=== PATIENT | female | born 1995 | race African-American/Black ===

== ENCOUNTER 2017-12-18 11:46 | Emergency (ER) | payer OTHER ==
[2017-12-18 11:53] VITALS: BP 108/73; BMI 21.1
[2017-12-18] MEDS ORDERED: IBUPROFEN 400 MG TABLET (FP) PO ONE (12:05)
--- NOTE | 2017-12-18 12:29 | PDOC ---
History of Present Illness - General Chief Complaint: Cold Symptoms Stated Complaint: NOT FEELING WELL Time Seen by Provider: 12/18/17 12:04 History Source: Patient - History of Present Illness Timing/Duration: other Associated Symptoms: reports: cough, fever/chills, headaches, weakness. denies : chest pain, nausea/vomiting Past History - Past Medical History Allergies/Adverse Reactions: Allergies Allergy/AdvReac Type Severity Reaction Status Date / Time Penicillins Allergy Verified 12/18/17 11:53 Home Medications: Ambulatory Orders NK [No Known Home Medication] 12/02/14 COPD: No DVT: No - Suicide/Smoking/Psychosocial Hx Smoking History: Never smoked Hx Alcohol Use: No Drug/Substance Use Hx: No Review of Systems - Review of Systems Constitutional: Yes: Fever HEENTM: Yes: Nose Congestion. No: Ear Pain, Throat Pain Respiratory: Yes: Cough. No: Shortness of Breath, Wheezing Cardiac (ROS): No: Chest Pain *Physical Exam - Vital Signs Last Vital Signs Temp Pulse Resp BP Pulse Ox 100.0 F H 102 H 20 108/73 98 12/18/17 11:50 12/18/17 11:50 12/18/17 11:50 12/18/17 11:50 12/18/17 11:50 - Physical Exam General Appearance: Yes: Appropriately Dressed. No: Apparent Distress HEENT: positive: Normal ENT Inspection, Normal Voice. negative: Scleral Icterus (R), Scleral Icterus (L) Neck: positive: Supple. negative: Lymphadenopathy (R), Lymphadenopathy (L) Respiratory/Chest: positive: Lungs Clear, Normal Breath Sounds. negative: Respiratory Distress Cardiovascular: positive: Regular Rate, S1, S2 Integumentary: positive: Dry, Warm Neurologic: positive: Fully Oriented, Alert, Normal Mood/Affect Medical Decision Making - Medical Decision Making 12/18/17 12:27 22-year-old female, no significant history here with generalized body aches with malaise, congestion, sneezing, cough and fever for 3 days. Taking NyQuil at home. Denies ear pain, sore throat, shortness of breath, chest pain, nausea , vomiting, diarrhea or rash. 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 Did get flu vaccine last month per patient. Patient with low-grade fever and mild tachycardia in ED with exam otherwise unremarkable. Suspect most likely viral source at this time, will rule out influenza. Anticipate discharge with supportive treatment 12/18/17 12:29 12/18/17 13:04 Flu A. No indication for tamiflu. Rpt vitals improved. No evidence of at this time, i.e., pneumonia. Will discharge with supportive treatment with strict return precautions given how deadly this year's flu strain has been 12/18/17 13:05 12/18/17 13:28 *DC/Admit/Observation/Transfer Diagnosis at time of Disposition: Influenza A - Discharge Dispostion Disposition: HOME Condition at time of disposition: Stable - Referrals Referrals: Michell Carter MD [Primary Care Provider] - - Patient Instructions Printed Discharge Instructions: Influenza Additional Instructions: You have the flu which is contagious. You will need to rest, drink plenty of fluids and take Motrin or Tylenol as needed for pain and/or fever. If symptoms worsen, especially if you develop shortness of breath, chest pain or increasing fever, return to ER immediately - Post Discharge Activity Forms/Work/School Notes: Back to Work
[2017-12-18 13:08] VITALS: PULSE 88; TEMP 100.2
== END 2017-12-18 13:13 | disposition home or self-care (01) ==
LOC: JERFT 11:46
DX: J09.X2 Influenza due to identified novel influenza A virus with other respiratory manifestations (principal)
CPT/HCPCS: 87804; 99281-25

== ENCOUNTER 2019-11-20 09:53 | Emergency (ER) | payer OTHER ==
[2019-11-20 09:58] VITALS: BMI 20.3
[2019-11-20 11:03] LABS: EPI CELLS 5.2 /HPF (0-5/HPF); HYALINE CASTS 9 /lpf (0-8); URINE APPEARANCE CLEAR; URINE BILIRUBIN NEGATIVE (NEGATIVE); URINE COLOR YELLOW; URINE GLUCOSE (UA) NEGATIVE (NEGATIVE); URINE KETONE NEGATIVE (NEGATIVE); URINE LEUK ESTERASE TRACE (NEGATIVE); URINE NITRITE NEGATIVE (NEGATIVE); URINE PROTEIN NEGATIVE (NEGATIVE); URINE RBC 2 /hpf (0-4); URINE WBC 9 /hpf (0-5)
[2019-11-20] MEDS ORDERED: ACETAMINOPHEN 650 MG/20.3 ML ORAL SOLUTION (CUPS) PO ONE (12:04)
[2019-11-20] MEDS ORDERED: SODIUM CHLORIDE 1,000 ML IV STA (12:13)
[2019-11-20] MEDS ORDERED: ACETAMINOPHEN 1000 MG/100 ML VIAL (NON FORMULARY) IVPB ONE (12:13)
[2019-11-20] MEDS ORDERED: ACETAMINOPHEN INJECTION 100 ML IVPB ONE (12:21)
[2019-11-20 12:43] LABS: BASO % 0.5 % (0-2.0); EOS % 2.7 % (0-4.5); HEMATOCRIT 33.1 % (32.4-45.2); LYMPH % 15.4 % (8-40); MCH 27.1 pg (25.7-33.7); MCHC 33.1 g/dl (32.0-36.0); MEAN CELL VOLUME 81.8 fl (80-96); MEAN PLT VOLUME 8.4 fl (7.5-11.1); MONO % 4.7 % (3.8-10.2); NEUT % 76.7 % (42.8-82.8); PLATELET COUNT 235 K/MM3 (134-434); RBC 4.05 M/mm3 (3.60-5.2); RDW 13.5 % (11.6-15.6); WHITE BLOOD COUNT 9.7 K/mm3 (4.0-10.0)
[2019-11-20 13:00] LABS: INR 0.97 (0.83-1.09); PROTHROMBIN TIME (PATIENT) 11.5 SEC (9.7-13.0)
[2019-11-20 13:20] LABS: ALBUMIN 3.2 g/dl (3.4-5.0); BILIRUBIN,TOTAL 0.1 mg/dL (0.2-1); BLOOD UREA NITROGEN 6.9 mg/dL (7-18); CALCIUM 8.6 mg/dL (8.5-10.1); CREATININE 0.5 mg/dL (0.55-1.3); POTASSIUM 4.2 mmol/L (3.5-5.1); TOT PROT 7.2 g/dl (6.4-8.2)
[2019-11-20 14:06] VITALS: TEMP 98.7
--- NOTE | 2019-11-20 14:34 | PDOC ---
History of Present Illness - General Chief Complaint: Pain, Acute Stated Complaint: ABD PAIN Time Seen by Provider: 11/20/19 10:05 History Source: Patient Exam Limitations: No Limitations Past History - Travel Traveled outside of the country in the last 30 days: No Close contact w/someone who was outside of country & ill: No - Past Medical History Allergies/Adverse Reactions: Allergies Allergy/AdvReac Type Severity Reaction Status Date / Time Penicillins Allergy Verified 11/20/19 09:55 Home Medications: Ambulatory Orders Acetaminophen [Tylenol -] 1,000 mg PO Q6H #30 tablet 11/20/19 2/Iron/Folic Acid/Om3 [Complete Faby Dha] 1 each PO DAILY 11/20/19 COPD: No DVT: No - Reproductive History Is Patient Now?: Yes (16 weeks ) (#): 2 Para: 1 Spontaneous : 0 - Psycho Social/Smoking Cessation Hx Smoking History: Never smoked Hx Alcohol Use: No Drug/Substance Use Hx: No Review of Systems - Review of Systems Able to Perform ROS?: Yes Comments:: 11/20/19 15:35 CONSTITUTIONAL: Absent: fever, chills, diaphoresis, generalized weakness, malaise, loss of appetite HEENT: Absent: rhinorrhea, nasal congestion, throat pain, throat swelling, difficulty swallowing, mouth swelling, ear pain, eye pain, visual Changes CARDIOVASCULAR: Absent: chest pain, loss of consciousness, palpitations, irregular heart rate, peripheral edema RESPIRATORY: Absent: cough, shortness of breath, dyspnea with exertion, orthopnea, wheezing, stridor, hemoptysis GASTROINTESTINAL: Present: Right lower quadrant pain, groin pain Absent: abdominal distension, nausea, vomiting, diarrhea, constipation, melena, hematochezia GENITOURINARY: Absent: dysuria, frequency, urgency, hesitancy, hematuria, flank pain, genital pain MUSCULOSKELETAL: Absent: myalgia, arthralgia, joint swelling SKIN: Absent: rash, itching, pallor NEUROLOGIC: Absent: headache, focal weakness or paresthesias, dizziness, unsteady gait, seizure, mental status changes, bladder or bowel incontinence PSYCHIATRIC: Absent: anxiety, depression, suicidal or homicidal ideation, hallucinations. Is the patient limited Faroese proficient: No *Physical Exam - Vital Signs Last Vital Signs Temp Pulse Resp BP Pulse Ox 98.7 F 78 18 101/50 L 100 11/20/19 14:06 11/20/19 14:06 11/20/19 14:06 11/20/19 14:06 11/20/19 14:06 - Physical Exam 11/20/19 15:36 GENERAL: Well developed, well nourished. Awake and alert. No acute distress. HEENT: Normocephalic, atraumatic. PERRLA, EOMI. No conjunctival pallor. Sclera are non- icteric. Moist mucous membranes. Oropharynx is clear. NECK: Supple. Full ROM. No JVD. Carotid pulses 2+ and symmetric, without bruits. No thyromegaly. No lymphadenopathy. CARDIOVASCULAR: Regular rate and rhythm. No murmurs, rubs, or gallops. Distal pulses are 2+ and symmetric. PULMONARY: No evidence of respiratory distress. Lungs clear to auscultation bilaterally. No wheezing, rales or rhonchi. ABDOMINAL: Tenderness to palpation of the right lower quadrant, right groin. Soft. Non- distended. No rebound or guarding. No organomegaly. Normoactive bowel sounds. MUSCULOSKELETAL Normal range of motion at all joints. No bony deformities or tenderness. No CVA tenderness. EXTREMITIES: No cyanosis. No clubbing. No edema. No calf tenderness. SKIN: Warm and dry. Normal capillary refill. No rashes. No jaundice. NEUROLOGICAL: Alert, awake, appropriate. Cranial nerves 2-12 intact. No deficits to light touch and temperature in face, upper extremities and lower extremities. No motor deficits in the in face, upper extremities and lower extremities. Normoreflexic in the upper and lower extremities. Normal speech. Toes are down- going bilaterally. Gait is normal without ataxia. PSYCHIATRIC: Cooperative. Good eye contact. Appropriate mood and affect. ED Treatment Course - LABORATORY CBC & Chemistry Diagram: 11/20/19 12:30 11/20/19 12:30 - ADDITIONAL ORDERS Additional order review: Laboratory Results 11/20/19 11/20/19 11/20/19 12:30 12:30 12:30 PT with INR 11.50 INR 0.97 Sodium 138 Potassium 4.2 Chloride 107 Carbon Dioxide 25 Anion Gap 6 L BUN 6.9 L Creatinine 0.5 L Est GFR (CKD-EPI)AfAm 155.90 Est GFR (CKD-EPI)NonAf 134.52 Random Glucose 82 Calcium 8.6 Total Bilirubin 0.1 L AST 23 ALT 15 Alkaline Phosphatase 84 Total Protein 7.2 Albumin 3.2 L Urine Color Urine Appearance Urine pH Ur Specific [place] Urine Protein Urine Glucose (UA) Urine Ketones Urine Blood Urine Nitrite Urine Bilirubin Urine Urobilinogen Ur Leukocyte Esterase Urine WBC (Auto) Urine RBC (Auto) Urine Casts (Auto) U Epithel Cells (Auto) Urine Bacteria (Auto) Blood Type B POSITIVE Antibody Screen Negative 11/20/19 10:40 PT with INR INR Sodium Potassium Chloride Carbon Dioxide Anion Gap BUN Creatinine Est GFR (CKD-EPI)AfAm Est GFR (CKD-EPI)NonAf Random Glucose Calcium Total Bilirubin AST ALT Alkaline Phosphatase Total Protein Albumin Urine Color Yellow Urine Appearance Clear Urine pH 7.0 Ur Specific [place] 1.026 Urine Protein Negative Urine Glucose (UA) Negative Urine Ketones Negative Urine Blood Negative Urine Nitrite Negative Urine Bilirubin Negative Urine Urobilinogen 1.0 Ur Leukocyte Esterase Trace Urine WBC (Auto) 9 Urine RBC (Auto) 2 Urine Casts (Auto) 9 U Epithel Cells (Auto) 5.2 Urine Bacteria (Auto) 907.0 Blood Type Antibody Screen 11/20/19 12:30 RBC 4.05 MCV 81.8 MCHC 33.1 RDW 13.5 MPV 8.4 Neutrophils % 76.7 Lymphocytes % 15.4 Monocytes % 4.7 Eosinophils % 2.7 Basophils % 0.5 - RADIOLOGY Radiology Studies Ordered: Category Date Time Status ABDOMEN MRI W/O CONTRAST /MRCP [MRI] Stat MRI 11/20/19 12:17 Ordered PELVIS(OTHER) US [US] Stat Ultrasound 11/20/19 10:47 Completed US(SINGLE) [US] Stat Ultrasound 11/20/19 10:38 Completed - Medications Given in the ED: ED Medications Discontinued Medications Generic Name Dose Route Start Last Admin Trade Name Freq PRN Reason Stop Dose Admin Acetaminophen 650 mg 11/20/19 12:04 11/20/19 12:59 Tylenol Oral Solution - PO 11/20/19 12:05 Not Given ONCE ONE Acetaminophen 1,000 mg 11/20/19 12:13 11/20/19 12:35 Ofirmev Injection - IVPB 11/20/19 12:14 1,000 mg ONCE ONE Administration Sodium Chloride 1,000 mls @ 1,000 mls/hr 11/20/19 12:13 11/20/19 12:34 Normal Saline - IV 11/20/19 13:12 1,000 mls/hr [facility] Administration Medical Decision Making - Medical Decision Making 11/20/19 15:36 Patient is a 23-year-old female, G2, P1, currently 16 weeks who presents to the ER today for worsening abdominal pain. She states that she has had some right lower quadrant and groin pain for the last 2 to 3 days. When she woke up this morning the pain was worse. She states that the pain is consistent and it is sharp. She also notes she had some left lower back pain. She denies fevers, nausea, vomiting and diarrhea. Denies vaginal bleeding or discharge. She has not taken any medication for her pain. Past surgical history: None Past medical history: None A/P: Abdominal pain On initial exam. No tenderness in the right lower quadrant. Pain within the right groin worse with movement. UA, pelvic ultrasound, ultrasound ordered UA with trace leukocytes. Ultrasound shows a healthy , currently 16 weeks and 2 days positive movement and heart rate Ultrasound cannot definitively rule out appendicitis. On reevaluation of the patient's abdomen, patient now with significant right lower quadrant tenderness. Case discussed with Dr. Whitman, given patient is with now right lower quadrant tenderness will evaluate for appendicitis Basic labs were ordered. No leukocytosis, H&H stable. MRI ordered, given patient is do not want order CT with contrast. Signout given to MONTEZ Santos. Pt pending MRI results. Discharge - Discharge Information Problems reviewed: Yes Clinical Impression/Diagnosis: Pain of round ligament during Condition: Stable Disposition: HOME - Additional Discharge Information Prescriptions: Acetaminophen [Tylenol -] 1,000 mg PO Q6H #30 tablet - Follow up/Referral Referrals: Yoana Brown MD [Staff Physician] - - Patient Discharge Instructions Patient Printed Discharge Instructions: Common Discomforts and Bodily Changes During Additional Instructions: Please take Tylenol for pain control as prescribed. Follow up with Dr. Brown as scheduled. As discussed, if you develop ANY fever, chills, nausea , vomiting, or any new or worsening pain to your abdomen, please return to the ER immediately. - Post Discharge Activity
--- NOTE | 2019-11-20 16:30 | PDOC ---
*Physical Exam - Vital Signs Last Vital Signs Temp Pulse Resp BP Pulse Ox 98.7 F 78 18 101/50 L 100 11/20/19 14:06 11/20/19 14:06 11/20/19 14:06 11/20/19 14:06 11/20/19 14:06 - Physical Exam 11/20/19 16:30 Sign-out received from outgoing ER provider Jacky. Pt interviewed and examined. Ancillary studies reviewed. Awaiting MRI results. 11/20/19 17:45 MRI results without evidence of appendicitis. Labs unremarkable with WBC wnl, low suspicion for intraabdominal infection. Discussed results with patient and mother, advised patient to f/u with OBGYN as scheduled in 10 days. Advised patient of signs and symptoms for return to ER; mother and patient verbalized understanding and agree to plan. ED Treatment Course - LABORATORY CBC & Chemistry Diagram: 11/20/19 12:30 11/20/19 12:30 - ADDITIONAL ORDERS Additional order review: Laboratory Results 11/20/19 11/20/19 11/20/19 12:30 12:30 12:30 PT with INR 11.50 INR 0.97 Sodium 138 Potassium 4.2 Chloride 107 Carbon Dioxide 25 Anion Gap 6 L BUN 6.9 L Creatinine 0.5 L Est GFR (CKD-EPI)AfAm 155.90 Est GFR (CKD-EPI)NonAf 134.52 Random Glucose 82 Calcium 8.6 Total Bilirubin 0.1 L AST 23 ALT 15 Alkaline Phosphatase 84 Total Protein 7.2 Albumin 3.2 L Urine Color Urine Appearance Urine pH Ur Specific [place] Urine Protein Urine Glucose (UA) Urine Ketones Urine Blood Urine Nitrite Urine Bilirubin Urine Urobilinogen Ur Leukocyte Esterase Urine WBC (Auto) Urine RBC (Auto) Urine Casts (Auto) U Epithel Cells (Auto) Urine Bacteria (Auto) Blood Type B POSITIVE Antibody Screen Negative 11/20/19 10:40 PT with INR INR Sodium Potassium Chloride Carbon Dioxide Anion Gap BUN Creatinine Est GFR (CKD-EPI)AfAm Est GFR (CKD-EPI)NonAf Random Glucose Calcium Total Bilirubin AST ALT Alkaline Phosphatase Total Protein Albumin Urine Color Yellow Urine Appearance Clear Urine pH 7.0 Ur Specific [place] 1.026 Urine Protein Negative Urine Glucose (UA) Negative Urine Ketones Negative Urine Blood Negative Urine Nitrite Negative Urine Bilirubin Negative Urine Urobilinogen 1.0 Ur Leukocyte Esterase Trace Urine WBC (Auto) 9 Urine RBC (Auto) 2 Urine Casts (Auto) 9 U Epithel Cells (Auto) 5.2 Urine Bacteria (Auto) 907.0 Blood Type Antibody Screen 11/20/19 12:30 RBC 4.05 MCV 81.8 MCHC 33.1 RDW 13.5 MPV 8.4 Neutrophils % 76.7 Lymphocytes % 15.4 Monocytes % 4.7 Eosinophils % 2.7 Basophils % 0.5 - Medications Given in the ED: ED Medications Discontinued Medications Generic Name Dose Route Start Last Admin Trade Name Erica PRN Reason Stop Dose Admin Acetaminophen 650 mg 11/20/19 12:04 11/20/19 12:59 Tylenol Oral Solution - PO 11/20/19 12:05 Not Given ONCE ONE Acetaminophen 1,000 mg 11/20/19 12:13 11/20/19 12:35 Ofirmev Injection - IVPB 11/20/19 12:14 1,000 mg ONCE ONE Administration Sodium Chloride 1,000 mls @ 1,000 mls/hr 11/20/19 12:13 11/20/19 12:34 Normal Saline - IV 11/20/19 13:12 1,000 mls/hr [facility] STA Administration Discharge - Discharge Information Problems reviewed: Yes Clinical Impression/Diagnosis: Pain of round ligament during Condition: Stable Disposition: HOME - Admission No - Additional Discharge Information Prescriptions: Acetaminophen [Tylenol -] 1,000 mg PO Q6H #30 tablet - Follow up/Referral Referrals: Yoana Brown MD [Staff Physician] - - Patient Discharge Instructions Patient Printed Discharge Instructions: Common Discomforts and Bodily Changes During Additional Instructions: Please take Tylenol for pain control as prescribed. Follow up with Dr. Brown as scheduled. As discussed, if you develop ANY fever, chills, nausea , vomiting, or any new or worsening pain to your abdomen, please return to the ER immediately. - Post Discharge Activity
[2019-11-20 17:20] VITALS: BP 104/57; PULSE 85
== END 2019-11-20 18:15 | disposition home or self-care (01) ==
LOC: JER 09:53
PROC: 3E033NZ Introduction of Analgesics, Hypnotics, Sedatives into Peripheral Vein, Percutaneous Approach (ICD-10-PCS; principal; 2019-11-20)
DX: O26.892 Other specified pregnancy related conditions, second trimester (principal); R10.2 Pelvic and perineal pain; Z3A.16 16 weeks gestation of pregnancy; Z88.0 Allergy status to penicillin
CPT/HCPCS: 36415; 74181-TC; 76801-TC; 76856-TC; 80053; 81003; 85025; 85610; 86850; 86900; 86901; 87086; 99283-25; J0131; J7030

== ENCOUNTER 2019-12-25 10:39 | Emergency (ER) | payer OTHER ==
[2019-12-25 10:53] VITALS: BP 110/52; PULSE 83; TEMP 98.9; BMI 20.3
--- NOTE | 2019-12-25 12:12 | PDOC ---
History of Present Illness - General Chief Complaint: Sore Throat Stated Complaint: RT. SIDE FACIAL PAIN Time Seen by Provider: 12/25/19 11:05 History Source: Patient Exam Limitations: No Limitations - History of Present Illness Initial Comments: 12/25/19 12:07 HISTORY OF PRESENT ILLNESS: 24-year-old woman who is 21 weeks gestation who presents emergency department for evaluation of sore throat, intermittent fevers , body aches over the past 2 days. Patient's son is here for evaluation of similar symptoms. No recent travel. PAST MEDICAL HISTORY: Denies past medical history SURGICAL HISTORY: Denies ALLERGIES: Penicillin REVIEW OF SYSTEMS General/Constitutional: +fever. Denies weakness, weight change. HEENT: Denies change in vision. Denies ear pain or discharge. +sore throat. Cardiovascular: Denies chest pain or shortness of breath. Respiratory: Moist productive cough. Denies wheezing, or hemoptysis. Gastrointestinal: Denies nausea, vomiting, diarrhea or constipation. Denies rectal bleeding. Genitourinary: Denies dysuria, frequency, or change in urination. Musculoskeletal: +myalgias. Denies neck or back pain. Skin and breasts: Denies rash or easy bruising. Neurologic: Denies headache, vertigo, loss of consciousness, or loss of sensation. Psychiatric: Denies depression or anxiety. Endocrine: Denies increased thirst. Denies abnormal weight change. Hematologic/Lymphatic: Denies anemia, easy bleeding, or history of blood clots. Allergic/Immunologic: Denies hives or skin allergy. Denies latex allergy. PHYSICAL EXAM General Appearance: Well-appearing, appropriately dressed. No apparent distress , no intoxication. HEENT: EOMI, PERRLA, normal voice, TMs retracted bilaterally. No conjunctival pallor. No photophobia, scleral icterus. Oropharynx erythematous without lesions or exudate. Cobblestoning noted in the posterior. No nasal discharge present. Neck: Supple. Trachea midline. No tenderness, rigidity, carotid bruit, stridor , or thyromegaly. Nontender anterior cervical lymphadenopathy present. Respiratory/Chest: Lungs CTAB. No shortness of breath, chest tenderness, respiratory distress, accessory muscle use. No crackles, rales, rhonchi, stridor , wheezing, dullness Cardiovascular: RRR. S1, S2. No JVD, murmur, bradycardia, tachycardia. Vascular Pulses: Dorsalis-Pedis (R): 2+, Dorsalis-Pedis (L): 2+ Gastrointestinal/Abdominal: Normal bowel sounds. Abdomen soft, non-distended. No tenderness or rebound tenderness. No organomegaly, pulsatile mass, guarding, hernia, hepatomegaly, splenomegaly. Musculoskeletal/Extremities: Normal inspection. FROM of all extremities, normal capillary refill. Pelvis Stable. No CVA tenderness. No tenderness to extremities, pedal edema, swelling, erythema or deformity. Integumentary: Appropriate color, dry, warm. No cyanosis, erythema, jaundice or rash Neurologic: water tester II-XII intact. Fully oriented, alert. Appropriate mood/affect. Motor strength 5/5. No appreciable EOM palsy, facial droop or sensory deficit. Past History - Past Medical History Allergies/Adverse Reactions: Allergies Allergy/AdvReac Type Severity Reaction Status Date / Time Penicillins Allergy Verified 12/25/19 10:49 Home Medications: Ambulatory Orders Acetaminophen [Tylenol -] 1,000 mg PO Q6H #30 tablet 11/20/19 2/Iron/Folic Acid/Om3 [Complete Dha] 1 each PO DAILY 11/20/19 Oseltamivir Phosphate [Tamiflu -] 75 mg PO BID #10 capsule 12/25/19 COPD: No DVT: No Other medical history: DENIES - Reproductive History (#): 2 Para: 1 Spontaneous : 0 - Immunization History Immunization Up to Date: Yes - Psycho Social/Smoking Cessation Hx Smoking History: Never smoked Hx Alcohol Use: No Drug/Substance Use Hx: No *Physical Exam - Vital Signs Last Vital Signs Temp Pulse Resp BP Pulse Ox 98.9 F 83 18 110/52 L 100 12/25/19 10:51 12/25/19 10:51 12/25/19 10:51 12/25/19 10:51 12/25/19 10:51 Medical Decision Making - Medical Decision Making 12/25/19 12:18 A/P: 24-year-old woman with flulike symptoms for 2 days Her son has tested positive for influenza B. Given close proximity to the child likely that mother would test positive also. As mother is 21 weeks gestation I will treat with Tamiflu. Risk and benefits of receiving Tamiflu have been discussed with the patient who has verbalized understanding and requested treatment. Dr. kirkland has been contacted and is aware of the patient's diagnosis and is recommended that labor and delivery come to the emergency department for Doppler. I discussed the physical exam findings, ancillary test results and final diagnoses with the patient. I answered all of the patient's questions. The patient was satisfied with the care received and felt comfortable with the discharge plan and treatment plan. The patient will call their primary care physician within 24 hours to arrange follow-up and will return to the Emergency Department with any new, persistent or worsening symptoms. Discharge - Discharge Information Problems reviewed: Yes Clinical Impression/Diagnosis: Influenza-like illness Condition: Stable Disposition: HOME - Admission No - Additional Discharge Information Prescriptions: Oseltamivir Phosphate [Tamiflu -] 75 mg PO BID #10 capsule - Follow up/Referral Referrals: Michell Carter MD [Primary Care Provider] - - Patient Discharge Instructions Additional Instructions: Rest, drink lots of fluids: Teas, water, soups, Pedialyte Saltwater gargles Steamy showers/seem to face break up mucus Old-fashioned treatments help! Avoid contact with others until fevers and cough resolved as this is very contagious Lots of handwashing and good hygiene Continue [id number] medications for symptomatic relief Tylenol or Motrin for fever and pain Take all of Tamiflu as directed: 1 tab every 12 hours for 5 days Followup with private physician in one to 2 days as needed or if worsening Return to emergency department for worsened symptoms, fevers, dehydration Influenza takes between 5 and 7 days for resolution Do not participate in any activity, work, or school until fevers and cough are gone for at least one day - Post Discharge Activity Work/Back to School Note: Back to Work
== END 2019-12-25 12:29 | disposition home or self-care (01) ==
LOC: JERFT 10:39
DX: J11.1 Influenza due to unidentified influenza virus with other respiratory manifestations (principal); Z88.0 Allergy status to penicillin
CPT/HCPCS: 99281-25

== ENCOUNTER 2021-03-14 08:39 | Emergency (ER) | payer OTHER ==
[2021-03-14 08:50] VITALS: BP 110/68; PULSE 60; TEMP 99.2; BMI 23.5
[2021-03-15 05:08] LABS: SARS-CoV-2 NAA Not Detected (Not Detected)
== END 2021-03-14 10:02 | disposition home or self-care (01) ==
LOC: JER 08:39
DX: R05 Cough (principal); J06.9 Acute upper respiratory infection, unspecified; Z11.52 Encounter for screening for COVID-19
CPT/HCPCS: 99283-25; C9803; U0003; U0005

== ENCOUNTER 2021-11-11 21:15 | Emergency (ER) | payer OTHER ==
[2021-11-11 22:25] VITALS: BP 106/69; PULSE 84; TEMP 98.1; BMI 21.9
[2021-11-11] MEDS ORDERED: METOCLOPRAMIDE HCL INJECTION 10 MG/2 ML VIAL IVPUSH ONE (22:56)
[2021-11-11] MEDS ORDERED: ACETAMINOPHEN 1000 MG/100 ML VIAL IVPB ONE (22:56)
[2021-11-11] MEDS ORDERED: SODIUM CHLORIDE 0.9% 500 ML INFUS.BAG IV ONE (22:56)
[2021-11-11] MEDS ORDERED: METOCLOPRAMIDE HCL INJECTION 10 MG/2 ML VIAL ONE (23:09)
[2021-11-12 00:29] LABS: BASO % 0.4 % (0-2.0); EOS % 0.6 % (0-4.5); HEMATOCRIT 32.1 % (32.4-45.2); HEMOGLOBIN 10.5 GM/dL (10.7-15.3); LYMPH % 21.2 % (8-40); MCH 25.3 pg (25.7-33.7); MCHC 32.7 g/dl (32.0-36.0); MEAN CELL VOLUME 77.4 fl (80-96); MEAN PLT VOLUME 8.4 fl (7.5-11.1); MONO % 6.4 % (3.8-10.2); NEUT % 71.4 % (42.8-82.8); PLATELET COUNT 297 10^3/uL (134-434); RBC 4.15 M/mm3 (3.60-5.2); RDW 14.9 % (11.6-15.6); WHITE BLOOD COUNT 9.8 K/mm3 (4.0-10.0)
[2021-11-12 00:59] LABS: ALBUMIN 3.1 g/dl (3.4-5.0); CALCIUM 8.7 mg/dL (8.5-10.1)
[2021-11-12] MEDS ORDERED: KETOROLAC TROMETHAMINE 30 MG/1 ML VIAL IVPUSH ONE (01:00)
[2021-11-12 01:03] LABS: CREATININE 0.9 mg/dL (0.55-1.3)
[2021-11-12 01:04] LABS: BILIRUBIN,TOTAL 0.2 mg/dL (0.2-1); TOT PROT 7.9 g/dl (6.4-8.2)
[2021-11-12] MEDS ORDERED: KETOROLAC TROMETHAMINE 30 MG/1 ML VIAL ONE (01:11)
== END 2021-11-12 03:10 | disposition home or self-care (01) ==
LOC: JER 21:15
PROC: 3E0333Z Introduction of Anti-inflammatory into Peripheral Vein, Percutaneous Approach (ICD-10-PCS; principal; 2021-11-11)
PROC: 3E0333Z Introduction of Anti-inflammatory into Peripheral Vein, Percutaneous Approach (ICD-10-PCS; 2021-11-11)
PROC: 3E033GC Introduction of Other Therapeutic Substance into Peripheral Vein, Percutaneous Approach (ICD-10-PCS; 2021-11-11)
DX: G43.909 Migraine, unspecified, not intractable, without status migrainosus (principal)
CPT/HCPCS: 36415; 80053; 84703; 85025; 87804; 87807; 99284-25; J0131